=== PATIENT | female | born 1945 | race Caucasian/White ===

== ENCOUNTER 2017-07-24 05:01 | Day surgery (SDC) | payer OTHER ==
[2017-07-20 08:32] VITALS: BMI 36.0
--- NOTE | 2017-07-20 09:00 | PAT Medication Instructions ---
Service Date Jul 20, 2017. Current Home Medication List Aripiprazole (Abilify), 5 MG PO QAM Cholecalciferol (D 5000), 1 CAP PO QAM Escitalopram (Lexapro), 20 MG PO QAM Flunisolide (Nasal) (Flunisolide), 2 SPRY SALLIE QD PRN for Nasal Congestion Levothyroxine Sodium (Levothyroxine Sodium), 1 TAB PO QAM Pravastatin Sod (Pravastatin Sodium), 1 TAB PO QAM Tolterodine Tartrate (Detrol LA), 1 CAP PO QAM Triamterene/Hctz (Dyazide 37.5MG/25MG *), 1 CAP PO QAM [Sinus/Allergy Otc], 1 TAB PO TID PRN Medication Instructions For Your Scheduled Surgery - Hold the following medications the morning of surgery: [Sinus/Allergy Otc], 1 TAB PO TID PRN Cholecalciferol (D 5000), 1 CAP PO QAM Triamterene/Hctz (Dyazide 37.5MG/25MG *), 1 CAP PO QAM - Take the following medications the morning of surgery with a sip of water OTHERWISE NOTHING TO EAT OR DRINK AFTER MIDNIGHT: Aripiprazole (Abilify), 5 MG PO QAM Escitalopram (Lexapro), 20 MG PO QAM Flunisolide (Nasal) (Flunisolide), 2 SPRY SALLIE QD PRN for Nasal Congestion Levothyroxine Sodium (Levothyroxine Sodium), 1 TAB PO QAM Pravastatin Sod (Pravastatin Sodium), 1 TAB PO QAM Tolterodine Tartrate (Detrol LA), 1 CAP PO QAM - Take the following medications as scheduled the night before surgery: Flunisolide (Nasal) (Flunisolide), 2 SPRY SALLIE QD PRN for Nasal Congestion [Sinus/Allergy Otc], 1 TAB PO TID PRN If you have any questions please call us at [phone] or [phone] or [phone]
[~2017-07-24] VITALS: Ht 154.9 cm; Wt 85.9 kg
[~2017-07-24 05:01] MED LIST: ABL/5 PO; CHOLCAP10 PO; DTRSR4 PO; DYZ PO; ESCI10TA17 PO; FLUN0.02 NAE; LEVO88TA3 PO; PRVC/40 PO; [UNRECOGNIZED DRUG - REMARK] PO
[2017-07-24 05:41] VITALS: BP 121/72; PULSE 76; TEMP 36.7; O2SAT 98; Ht 154.9 cm; Wt 85.9 kg
[2017-07-24] MEDS ORDERED: CEFAZOLIN 2000 MG/60 ML D5W IV SCH (06:00)
[2017-07-24] MEDS ORDERED: LACTATED RINGER'S 1000ML 1,000 ML IV SCH (06:00)
[2017-07-24] MEDS ORDERED: PROPOFOL IV EMULSION 10 MG/ML 20 ML VIAL IV ONE (06:41)
[2017-07-24] MEDS ORDERED: FENTANYL CITRATE INJ 50 MCG/1 ML 2 ML VIAL ONE (06:41)
[2017-07-24] MEDS ORDERED: MIDAZOLAM HCL 1 MG/ML 2ML VIAL ONE (06:41)
[2017-07-24] MEDS ORDERED: LIDOCAINE HCL 2% 2 ML VIAL (20MG/ML) ONE (06:41)
[2017-07-24] MEDS ORDERED: ONDANSETRON INJ 2 MG/ML 2 ML VIAL ONE (06:41)
[2017-07-24] MEDS ORDERED: BUPIVACAINE 0.5 % 5 MG/1 ML MPF 30ML VIAL ONE (06:45)
[2017-07-24] MEDS ORDERED: BACITRACIN OINT 15 GM TUBE ONE (06:45)
[2017-07-24] MEDS ORDERED: LIDOCAINE HCL 1% 20 ML VIAL ONE (06:45)
--- NOTE | 2017-07-24 07:12 | History & Physical Bridge Note ---
H&P Re-Evaluation Bridge Note: I have examined the patient, reviewed the History & Physical and in the interval since the performance of the History & Physical I have noted the following changes of clinical significance: ventral hernia repair possible mesh.
[2017-07-24] MEDS ORDERED: NEOSTIGMINE METHYLSULFATE 5 MG/5 ML SYR ONE (07:52)
[2017-07-24] MEDS ORDERED: SUCCINYLCHOLINE 100MG/5ML SYR IV ONE (07:52)
[2017-07-24] MEDS ORDERED: GLYCOPYRROLATE INJ 0.2 MG/ML VIAL ONE (07:52)
--- NOTE | 2017-07-24 08:19 | [facility] Post Operative Brief Note ---
Immediate Operative Summary Operative Date Jul 24, 2017. Pre-Operative Diagnosis Primary Ventral Hernia Post-Operative Diagnosis Same as preoperative Procedure(s) Performed Open Primary Ventral Hernia Repair Surgeon Dr[facility]dan [facility] Administrative Assistant Surgeon(s) neurosurgical physician assistant Estimated Blood Loss 10ml Findings small ventral hernia, size 1x1cm, Fluids (cc crystalloids) 700ml Specimens None per surgeon Drains none Anesthesia general Complication(s) None Disposition Recovery Room / PACU
[2017-07-24] MEDS ORDERED: NALOXONE HCL 0.4 MG/1 ML VIAL/CARP IV PRN (08:30)
[2017-07-24] MEDS ORDERED: ONDANSETRON INJ 2 MG/ML 2 ML VIAL IV PRN (08:30)
[2017-07-24] MEDS ORDERED: FLUMAZENIL 0.1 MG/1 ML 10 ML VIAL IV PRN (08:30)
[2017-07-24] MEDS ORDERED: PROMETHAZINE HCL INJ 12.5 MG in SODIUM CHLORIDE 0.9% 50ML 50 ML IV PRN (08:30)
[2017-07-24] MEDS ORDERED: ATROPINE SULFATE 0.1 MG/ML 5ML SYR IV PRN (08:30)
[2017-07-24] MEDS ORDERED: FENTANYL CITRATE INJ 50 MCG/1 ML 2 ML VIAL IV PRN (08:30)
[2017-07-24] MEDS ORDERED: LABETALOL HCL IV 5 MG/ML 20ML IV PRN (08:30)
[2017-07-24] MEDS ORDERED: EpHEDrine SULFATE INJ 50 MG/ML AMP IV PRN (08:30)
--- NOTE | 2017-07-24 08:31 | Discharge Instructions ---
Discharge Instructions Date of Service Jul 24, 2017. Visit Reason for Visit: vventral Hernia Discharge Discharge Diagnosis / Problem: repair ventral hernia Discharge Goals Goal(s): Decrease discomfort, Improve function Activity Recommendations Activity Limitations: per Instructions/Follow-up section Lifting Limitations: no more than 25 pounds Exercise/Sports Limitations: rest today May Resume Sexual Activity: when tolerated Shower/Bathe: may shower/bathe in 3 days Driving or Machine Use: resume 3 days after discharge Anesthesia . Post Anesthesia Instructions: If you have had General Anesthesia or IV Sedation: * Do not drive today. * Resume driving when surgeon permits. * Do not make important decisions or sign legal documents today. * Call surgeon for: 1. Temperature elevations greater than 101 degrees F. 2. Uncontrollable pain. 3. Excessive bleeding. 4. Persistent nausea and vomiting. 5. Medication intolerance (nausea, vomiting or rash). * For nausea and vomiting use only clear liquids such as: tea, soda, bouillon until nausea subsides, then gradually increase diet as tolerated. * If you have any concerns or questions, call your surgeon's office. If physician is unavailable and it is an emergency, call 911 or go to the nearest emergency room. . Instructions / Follow-Up Instructions / Follow-Up keep the dressing on for 4 days, she can take a shower on 07/28/2017. no driving while taking pain medicine. follow up one week, . Diet Recommendations Recommended Home Diet: resume previous diet Procedures Procedures Performed: Open Primary Ventral Hernia Repair Pending Studies Studies pending at discharge: no Medical Emergencies . Who to Call and When: Medical Emergencies: If at any time you feel your situation is an emergency, please call 911 immediately. . Non-Emergent Contact Non-Emergency issues call your: Surgeon Call Non-Emergent contact if: you have a fever, temperature is above 100.5, your pain is not controlled, your pain is worsening, wound has increased drainage, wound has increased redness . . "Provider Documentation" section prepared by Bogdan Zeng. . [place] Drug Monitoring Program Search Results: no issues identified
[2017-07-24] MEDS ORDERED: OXYC-57 PO (08:32)
--- NOTE | 2017-07-24 08:50 | Anesthesiology Progress Note ---
Anesthesia Post Op Note Date & Time Jul 24, 2017 at 08:50 Vital Signs Pain Intensity: 2 Vital Signs Past 12 Hours Date Time Temp Pulse Resp B/P (MAP) Pulse Ox O2 Delivery O2 Flow Rate FiO2 07/24/17 08:45 82 14 138/77 91 Room Air 07/24/17 08:35 75 13 130/70 100 Oxymask 10 07/24/17 08:25 78 19 133/66 97 Oxymask 10 07/24/17 08:18 36.0 96 18 103/71 93 Oxymask 10 07/24/17 05:41 36.7 76 18 121/72 (88) 98 Room Air Notes Mental Status: alert / awake / arousable, participated in evaluation Pt Amnestic to Procedure: Yes Nausea / Vomiting: adequately controlled Pain: adequately controlled Airway Patency, RR, SpO2: stable & adequate BP & HR: stable & adequate Hydration State: stable & adequate Anesthetic Complications: no major complications apparent
[2017-07-24 09:05] VITALS: BP 143/69; PULSE 73; TEMP 36.6; O2SAT 94
[2017-07-24 09:35] VITALS: BP 127/60; PULSE 75; O2SAT 93
[2017-07-24] MEDS ORDERED: OXYCODONE/ACETAMINOPHEN 5-325 TAB ONE (09:57)
[2017-07-24] MEDS ORDERED: NURSING VERBAL MED ORDER ONE (10:00)
[2017-07-24 10:05] VITALS: BP 125/67; PULSE 77; TEMP 36.6; O2SAT 93
[2017-07-24 10:30] VITALS: BP 158/72; PULSE 76; TEMP 36.7; O2SAT 95
[2017-07-24] MEDS ORDERED: ROCURONIUM BROMIDE 10 MG/ML 5 ML VIAL IV ONE (11:04)
--- NOTE | 2017-07-24 22:20 | OPERATIVE REPORT ---
DATE OF OPERATION: 07/24/2017 PREOPERATIVE DIAGNOSIS: Ventral hernia. POSTOPERATIVE DIAGNOSIS: Same. OPERATION: Open primary repair of ventral hernia. SURGEON: Bogdan Zeng MD. ANESTHESIA: General. ESTIMATED BLOOD LOSS: About 10 mL FINDINGS: Ventral hernia, small size about 1 cm. COMPLICATIONS: None. INDICATIONS FOR THE PROCEDURE: This is 72-year-old female who presented with abdominal pain just above the umbilicus and the patient was diagnosed for umbilical hernia and the patient required to do open repair of ventral hernia just above the umbilicus, possible mesh. I did talk to the patient about the benefit and risk, and alternate procedure. I indicated the risks may include, but not limited such as bleeding, infection, hernia recurrence, may need more procedures, DVT, myocardial infarction, stroke, or even . The patient understands. She signed informed consent and I answered all questions. DETAILS OF THE PROCEDURE: We brought the patient to the OR, put the patient in the supine position. The patient received SCD on bilateral legs to prevent DVT. Also, the patient received 2 grams Ancef IV for prophylactic antibiotic. The patient received general anesthesia without difficulty. Then, the patient's abdomen was prepped and draped in routine sterile fashion. ____ , the patient's showed me the hernia just above umbilicus and because there was bulging and the patient required to fix this just above umbilical ventral hernia and once we get his routine prepped and draped on the abdomen, I made about 3 cm incision just above umbilicus and found that the patient had a small hernia just lateral to the ____ and then because the hernia is small, so I choose to use #1 Ethibond [id number] x2, and closed the hernia and rechecked and no other hernia present. So hemostasis was obtained before we closed the hernia and all of the hernia contents ____ though the abdominal cavity. Then we closed the subcutaneous layer by using 2-0 Vicryl continuous running, closed skin by using 4-0 Vicryl continuous running. Then we put the dressing on. The patient tolerated the procedure well. After the procedure, I did talk to the patient and the patient's family member about the OR finding and procedure we did, and they understand. All the instrument, needle and sponge count are correct x2 at the end of case. The patient transferred to recovery room in stable condition. Also, gave the patient the postop care instructions. I attest to the content of the Intraoperative Record and any orders documented therein. Any exception s are noted below.
[2017-07-25] MEDS ORDERED: CEFAZOLIN IV 2,000 MG/60 ML D5W IV ONE (06:00)
== END 2017-07-24 10:40 | disposition home or self-care (01) ==
LOC: C.ACU 05:01
PROVIDERS: ATTEND Surgery
DX: K43.9 Ventral hernia without obstruction or gangrene (principal); G47.33 Obstructive sleep apnea (adult) (pediatric); I10 Essential (primary) hypertension; E66.9 Obesity, unspecified; E03.9 Hypothyroidism, unspecified; E78.5 Hyperlipidemia, unspecified; K58.9 Irritable bowel syndrome, unspecified; Z90.710 Acquired absence of both cervix and uterus; Z90.722 Acquired absence of ovaries, bilateral; Z90.79 Acquired absence of other genital organ(s); Z82.49 Family history of ischemic heart disease and other diseases of the circulatory system